=== PATIENT | female | born 1965 | race Caucasian/White ===

== ENCOUNTER 2019-02-16 07:36 | Inpatient (IN) | payer OTHER, MEDICAID ==
[~2019-02-16] VITALS: Ht 152.4 cm; Wt 68.0 kg
[2019-02-16] MEDS ORDERED: SODIUM CHLORIDE 0.9% 1000ML BAG (SEPSIS BOLUS) IV ONE (08:00)
[2019-02-16 08:47] LABS: BG BASE EXCESS 2.9 mmol/L (-2.0-2.0); BG CARBOXYHEMOGLOBIN 1.3 % (0.5-1.5); BG DEOXYHEMOGLOBIN 2.8 % (0.0-5.0); BG HCO3 ACT 26.9 mmol/L (22.0-26.0); BG OXYGEN SATURATION 97.2 % (92.0-98.5); BG OXYHEMOGLOBIN 95.9 % (94.0-97.0); BG PCO2 39.2 mmHg (35.0-45.0); BG PH 7.454 (7.350-7.450); BG PO2 92.6 mmHg (75.0-100.0); BG SAMPLE SITE RIGHT RADIAL; BG TOTAL HEMOGLOBIN 12.2 g/dL (12.0-18.0); BG VENT MODE ROOM AIR
[2019-02-16 09:01] LABS: BASOPHILS % 0.6 % (0.0-2.0); EOSINOPHILS % 0.2 % (0.0-5.0); HEMATOCRIT. 37.5 % (36.0-48.0); HEMOGLOBIN. 12.5 g/dL (12.0-16.0); LYMPHOCYTES % 14.9 % (20.0-50.0); MEAN CORPUSCULAR HEMOGLOBIN 26.2 pg (28.0-32.0); MEAN CORPUSCULAR VOLUME 78.6 fL (81.0-99.0); MEAN PLATELET VOLUME 7.8 fl (7.4-10.4); NEUTROPHILS % 79.3 % (40.0-76.0); PLATELET 444 x1000/uL (130-400); RED BLOOD CELL COUNT 4.76 mill/uL (4.2-5.4); RED CELL DISTRIBUTION WIDTH 14.4 % (11.6-14.6)
[2019-02-16 09:07] LABS: PROTHROMBIN TIME 10.2 sec (9.6-11.0)
[2019-02-16 09:12] LABS: CHLORIDE 102 mEq/L (98-107)
[2019-02-16 09:20] LABS: BETA HYDROXYBUTYRATE 0.5 mMol/L (0.0-0.3)
[2019-02-16 09:28] LABS: CLARITY URINE TURBID (CLEAR); KETONES URINE NEGATIVE (NEGATIVE); LEUKOCYTE ESTERASE URINE 3+ (NEGATIVE); NITRITE URINE NEGATIVE (NEGATIVE); OCCULT BLOOD URINE 3+ (NEGATIVE); PH URINE 5.5 (4.5-8.0); PROTEIN URINE 2+ (NEGATIVE); SPECIFIC GRAVITY URINE 1.018 (1.005-1.030); UROBILINOGEN URINE 0.2 E.U./dL (0.2-1.0)
[2019-02-16 10:38] LABS: COLOR URINE PALE YELLOW (YELLOW)
[2019-02-16] MEDS ORDERED: PIPERACILLIN/TAZ 3.375G PREMIX 50 ML IV NR (11:15)
[2019-02-16] MEDS ORDERED: PIPERACILLIN/TAZOBACTAM 3.375GM/50ML PREMIX IV ONE (11:15)
[2019-02-16] MEDS ORDERED: MAGNESIUM/ALUMINUM HYDROXIDE/SIMETHICONE 30ML UDC PO PRN (12:30)
[2019-02-16] MEDS ORDERED: IPRATROPIUM/ALBUTEROL 0.5-3(2.5)MG/3ML NEB INH PRN (12:30)
[2019-02-16] MEDS ORDERED: TRAMADOL 50MG TABLET PO PRN (12:30)
[2019-02-16] MEDS ORDERED: KETOROLAC 15MG/ML VIAL IV PRN (12:30)
[2019-02-16] MEDS ORDERED: CLONIDINE 0.1MG TABLET PO PRN (12:30)
[2019-02-16] MEDS ORDERED: ONDANSETRON HCL 4MG/2ML INJ IV PRN (12:30)
[2019-02-16] MEDS ORDERED: DOCUSATE SODIUM 100MG CAPSULE PO PRN (12:30)
[2019-02-16] MEDS ORDERED: DEXTROSE 50% WATER 50ML SYRINGE IV PRN (12:30)
[2019-02-16] MEDS ORDERED: NITROGLYCERIN 0.4MG TABLET SL SL PRN (12:30)
[2019-02-16] MEDS ORDERED: NA PHOS,M-B/NA PHOS,DI-BA ENEMA 118ML PR PRN (12:30)
[2019-02-16] MEDS ORDERED: GUAIFENESIN 200MG/10ML SUGAR FREE UDC PO PRN (12:30)
[2019-02-16] MEDS: BLOOD SUGAR DIAGNOSTIC STRIP TEST SCH ×3 (13:11→21:37)
[2019-02-16] MEDS ORDERED: LABETALOL 5MG/ML SYR 20 MG/4 ML SYRINGE IV ONE (13:15)
[2019-02-16 13:16] LABS: FOLIC ACID (FOLATE) SERUM > 20.00 ng/mL (>5.38); VITAMIN B12 SERUM 1029 pg/mL (211-911)
[2019-02-16 13:45] VITALS: BP 132/81
[2019-02-16] MEDS: DEXT 5%/0.45% NACL 1000ML 1,000 ML IV SCH ×2 (15:20→23:34)
[2019-02-16] MEDS: INSULIN LISPRO 100 UNITS/ML SUBCUT SCH ×3 (15:26→22:57)
[2019-02-16 16:00] VITALS: BP 155/87
[2019-02-16] MEDS ORDERED: CEFTRIAXONE 1 G PREMIX 50 ML IV SCH (16:00)
[2019-02-16] MEDS: ENOXAPARIN 40MG/0.4ML SYR SUBCUT SCH (16:22)
[2019-02-16] MEDS ORDERED: LEVOFLOXACIN 500MG PREMIX 100 ML IV SCH (17:00)
[2019-02-16 17:37] LABS: CREATINE KINASE 94 IU/L (26-192)
[2019-02-16 17:38] LABS: CREATINE KINASE MB FRACTION < 1.0 ng/mL (0.5-3.6)
[2019-02-16] MEDS ORDERED: DOCU-138 PO (17:40)
[2019-02-16] MEDS ORDERED: INSU100I28 SQ (17:45)
[2019-02-16] MEDS ORDERED: AMLO10TA4 PO (17:45)
[2019-02-16] MEDS ORDERED: MOM PO (17:45)
[2019-02-16] MEDS ORDERED: ACET-2178 PO (17:45)
[2019-02-16] MEDS ORDERED: BENA10TA10 PO (17:45)
[2019-02-16] MEDS ORDERED: BISA10SU8 RC (17:45)
[2019-02-16 20:00] VITALS: BP 121/67
[2019-02-16] MEDS ORDERED: CLONIDINE HCL 0.2MG/24HR PATCH TD ONE (20:30)
[2019-02-16] MEDS ORDERED: ZOLPIDEM TARTRATE 5MG TABLET PO PRN (21:00)
[2019-02-16] MEDS: FAMOTIDINE 20MG TABLET PO SCH (21:00)
[2019-02-16] MEDS: METOPROLOL TARTRATE 25MG TABLET PO SCH (21:00)
[2019-02-16] MEDS: LISINOPRIL 20MG TABLET PO SCH (21:00)
[2019-02-16] MEDS: ATORVASTATIN CALCIUM 10MG TABLET PO SCH (21:00)
[2019-02-16] MEDS ORDERED: INSULIN GLARGINE UD 100 UNITS/ML SYR SUBCUT SCH (22:00)
[2019-02-16] MEDS: HYDRALAZINE 20MG/ML VIAL IV PRN (23:28)
[2019-02-16] MEDS: INSULIN GLARGINE UD 100 UNITS/ML SYR SUBCUT SCH (23:29)
[2019-02-17] VITALS (8 sets, daily range): BP systolic 120–210; BP diastolic 75–110
[2019-02-17 00:16] LABS: CREATINE KINASE 112 IU/L (26-192)
[2019-02-17] MEDS: BLOOD SUGAR DIAGNOSTIC STRIP TEST SCH ×4 (07:25→21:14)
[2019-02-17] MEDS: INSULIN LISPRO 100 UNITS/ML SUBCUT SCH ×4 (08:10→21:18)
[2019-02-17] MEDS: METOPROLOL TARTRATE 25MG TABLET PO SCH ×2 (08:31→21:19)
[2019-02-17] MEDS: AMLODIPINE 10MG TABLET PO SCH (08:32)
[2019-02-17] MEDS: LISINOPRIL 20MG TABLET PO SCH ×2 (08:32→21:19)
[2019-02-17] MEDS: FAMOTIDINE 20MG TABLET PO SCH ×2 (08:32→21:19)
[2019-02-17] MEDS ORDERED: ASPIRIN 325MG EC TABLET PO SCH (09:00)
[2019-02-17] MEDS: DEXT 5%/0.45% NACL 1000ML 1,000 ML IV SCH ×2 (10:00→21:17)
[2019-02-17 11:29] LABS: BASOPHILS % 0.6 % (0.0-2.0); EOSINOPHILS % 0.2 % (0.0-5.0); HEMATOCRIT. 36.6 % (36.0-48.0); HEMOGLOBIN. 12.3 g/dL (12.0-16.0); MEAN CORPUSCULAR HEMOGLOBIN 26.5 pg (28.0-32.0); MEAN CORPUSCULAR VOLUME 79.1 fL (81.0-99.0); MEAN PLATELET VOLUME 7.4 fl (7.4-10.4); MONOCYTES % 8.1 % (2.0-8.0); NEUTROPHILS % 74.1 % (40.0-76.0); PLATELET 382 x1000/uL (130-400); RED BLOOD CELL COUNT 4.63 mill/uL (4.2-5.4); RED CELL DISTRIBUTION WIDTH 14.5 % (11.6-14.6)
[2019-02-17 11:40] LABS: CHLORIDE 107 mEq/L (98-107)
[2019-02-17] MEDS: HYDRALAZINE 20MG/ML VIAL IV PRN (12:38)
[2019-02-17] MEDS ORDERED: DIATR MEGLU/DIATRIZOATE SOLN 30ML PO SCH (13:45)
[2019-02-17] MEDS: ENOXAPARIN 40MG/0.4ML SYR SUBCUT SCH (17:39)
[2019-02-17] MEDS: NYSTATIN POWDER 15GM TOP SCH (17:40)
[2019-02-17] MEDS: CEFTRIAXONE 1 G PREMIX 50 ML IV SCH (18:19)
[2019-02-17] MEDS: LEVOFLOXACIN 500MG PREMIX 100 ML IV SCH (18:49)
[2019-02-17] MEDS: ATORVASTATIN CALCIUM 10MG TABLET PO SCH (21:18)
[2019-02-17] MEDS: INSULIN GLARGINE UD 100 UNITS/ML SYR SUBCUT SCH (21:20)
[2019-02-18] VITALS: BP 158/82
[2019-02-18 04:00] VITALS: BP 149/82
[2019-02-18] MEDS: BLOOD SUGAR DIAGNOSTIC STRIP TEST SCH ×4 (05:39→21:32)
[2019-02-18] MEDS: DEXT 5%/0.45% NACL 1000ML 1,000 ML IV SCH ×2 (05:40→19:04)
[2019-02-18 08:00] VITALS: BP 120/72
[2019-02-18] MEDS: LISINOPRIL 20MG TABLET PO SCH ×2 (08:22→21:30)
[2019-02-18] MEDS: AMLODIPINE 10MG TABLET PO SCH (08:22)
[2019-02-18] MEDS: NYSTATIN POWDER 15GM TOP SCH ×3 (08:22→17:09)
[2019-02-18] MEDS: METOPROLOL TARTRATE 25MG TABLET PO SCH ×2 (08:23→21:30)
[2019-02-18] MEDS: FAMOTIDINE 20MG TABLET PO SCH ×2 (08:23→21:30)
[2019-02-18] MEDS: INSULIN LISPRO 100 UNITS/ML SUBCUT SCH ×4 (08:24→21:00)
[2019-02-18] MEDS: ASPIRIN 325MG TABLET PO SCH (10:00)
[2019-02-18 12:00] VITALS: BP 118/79
[2019-02-18 16:00] VITALS: BP 168/89
[2019-02-18] MEDS: ENOXAPARIN 40MG/0.4ML SYR SUBCUT SCH (16:48)
[2019-02-18] MEDS: CEFTRIAXONE 1 G PREMIX 50 ML IV SCH (17:11)
[2019-02-18] MEDS ORDERED: BISACODYL 5MG TABLET PO SCH (17:30)
[2019-02-18] MEDS: LEVOFLOXACIN 500MG PREMIX 100 ML IV SCH (18:58)
[2019-02-18 20:00] VITALS: BP 132/61
[2019-02-18] MEDS ORDERED: BISACODYL 10MG SUPP PR SCH (21:00)
[2019-02-18] MEDS: ATORVASTATIN CALCIUM 10MG TABLET PO SCH (21:30)
[2019-02-18] MEDS: INSULIN GLARGINE UD 100 UNITS/ML SYR SUBCUT SCH (21:33)
[2019-02-19] VITALS: BP 134/60
[2019-02-19 04:00] VITALS: BP 124/62
[2019-02-19] MEDS: BLOOD SUGAR DIAGNOSTIC STRIP TEST SCH ×4 (07:40→21:13)
[2019-02-19 08:00] VITALS: BP 132/76
[2019-02-19] MEDS: LISINOPRIL 20MG TABLET PO SCH ×2 (08:57→20:22)
[2019-02-19] MEDS: AMLODIPINE 10MG TABLET PO SCH (08:58)
[2019-02-19] MEDS: FAMOTIDINE 20MG TABLET PO SCH ×2 (08:58→20:23)
[2019-02-19] MEDS: ASPIRIN 325MG TABLET PO SCH (08:58)
[2019-02-19] MEDS: INSULIN LISPRO 100 UNITS/ML SUBCUT SCH ×4 (09:00→21:00)
[2019-02-19] MEDS: NYSTATIN POWDER 15GM TOP SCH ×3 (09:01→18:25)
[2019-02-19] MEDS: METOPROLOL TARTRATE 25MG TABLET PO SCH ×2 (09:07→20:23)
[2019-02-19 12:00] VITALS: BP 149/81
[2019-02-19] MEDS ORDERED: BISACODYL 10MG SUPP PR PRN (15:30)
[2019-02-19 16:00] VITALS: BP 129/72
[2019-02-19] MEDS: ENOXAPARIN 40MG/0.4ML SYR SUBCUT SCH (16:53)
[2019-02-19] MEDS: CEFTRIAXONE 1 G PREMIX 50 ML IV SCH (18:25)
[2019-02-19] MEDS: LEVOFLOXACIN 500MG PREMIX 100 ML IV SCH (18:52)
[2019-02-19 20:00] VITALS: BP 192/90
[2019-02-19] MEDS: ATORVASTATIN CALCIUM 10MG TABLET PO SCH (20:23)
[2019-02-19] MEDS: ACETAMINOPHEN 325MG TABLET PO PRN (20:23)
[2019-02-19] MEDS: INSULIN GLARGINE UD 100 UNITS/ML SYR SUBCUT SCH (21:40)
[2019-02-19] MEDS: DEXT 5%/0.45% NACL 1000ML 1,000 ML IV SCH (22:35)
[2019-02-20] VITALS (7 sets, daily range): BP systolic 150–200; BP diastolic 74–93
[2019-02-20 06:54] LABS: HEMATOCRIT 37.6 % (36.0-48.0); HEMOGLOBIN 12.5 g/dL (12.0-16.0); MEAN CORPUSCULAR HEMOGLOBIN 25.9 pg (28.0-32.0); PLATELET 447 x1000/uL (130-400); RED BLOOD CELL COUNT 4.83 mill/uL (4.2-5.4); RED CELL DISTRIBUTION WIDTH 14.1 % (11.6-14.6)
[2019-02-20] MEDS: BLOOD SUGAR DIAGNOSTIC STRIP TEST SCH ×4 (07:03→21:00)
[2019-02-20] MEDS: INSULIN LISPRO 100 UNITS/ML SUBCUT SCH ×4 (08:10→22:41)
[2019-02-20] MEDS: FAMOTIDINE 20MG TABLET PO SCH ×2 (09:38→22:33)
[2019-02-20] MEDS: ASPIRIN 325MG TABLET PO SCH (09:38)
[2019-02-20] MEDS: AMLODIPINE 10MG TABLET PO SCH (09:39)
[2019-02-20] MEDS: LISINOPRIL 20MG TABLET PO SCH ×2 (09:39→22:33)
[2019-02-20] MEDS: DEXT 5%/0.45% NACL 1000ML 1,000 ML IV SCH ×2 (09:40→18:00)
[2019-02-20] MEDS: METOPROLOL TARTRATE 25MG TABLET PO SCH ×2 (09:40→22:33)
[2019-02-20] MEDS: ACETAMINOPHEN 325MG TABLET PO PRN ×2 (09:41→18:54)
[2019-02-20] MEDS: NYSTATIN POWDER 15GM TOP SCH ×3 (10:06→18:54)
[2019-02-20] MEDS: ENOXAPARIN 40MG/0.4ML SYR SUBCUT SCH (18:54)
[2019-02-20] MEDS: CEFTRIAXONE 1 G PREMIX 50 ML IV SCH (18:54)
[2019-02-20] MEDS: ATORVASTATIN CALCIUM 10MG TABLET PO SCH (22:33)
[2019-02-20] MEDS: LEVOFLOXACIN 500MG PREMIX 100 ML IV SCH (22:33)
[2019-02-20] MEDS: INSULIN GLARGINE UD 100 UNITS/ML SYR SUBCUT SCH (22:41)
[2019-02-21] VITALS (10 sets, daily range): BP systolic 130–193; BP diastolic 60–96
[2019-02-21] MEDS: DEXT 5%/0.45% NACL 1000ML 1,000 ML IV SCH ×2 (05:29→15:12)
[2019-02-21] MEDS: BLOOD SUGAR DIAGNOSTIC STRIP TEST SCH ×4 (06:07→20:37)
[2019-02-21] MEDS: HYDRALAZINE 20MG/ML VIAL IV PRN (06:44)
[2019-02-21] MEDS: INSULIN LISPRO 100 UNITS/ML SUBCUT SCH ×4 (08:10→21:37)
[2019-02-21] MEDS: AMLODIPINE 10MG TABLET PO SCH (10:40)
[2019-02-21] MEDS: ASPIRIN 325MG TABLET PO SCH (10:40)
[2019-02-21] MEDS: FAMOTIDINE 20MG TABLET PO SCH ×2 (10:40→20:37)
[2019-02-21] MEDS: METOPROLOL TARTRATE 25MG TABLET PO SCH ×2 (10:41→20:37)
[2019-02-21] MEDS: LISINOPRIL 20MG TABLET PO SCH ×2 (10:42→20:37)
[2019-02-21] MEDS: NYSTATIN POWDER 15GM TOP SCH ×3 (16:39→16:42)
[2019-02-21] MEDS: ENOXAPARIN 40MG/0.4ML SYR SUBCUT SCH (16:41)
[2019-02-21] MEDS: CEFTRIAXONE 1 G PREMIX 50 ML IV SCH (16:48)
[2019-02-21] MEDS: LEVOFLOXACIN 500MG PREMIX 100 ML IV SCH (19:41)
[2019-02-21] MEDS: ATORVASTATIN CALCIUM 10MG TABLET PO SCH (20:36)
[2019-02-21] MEDS: INSULIN GLARGINE UD 100 UNITS/ML SYR SUBCUT SCH (21:37)
[2019-02-22] VITALS: BP 146/78
[2019-02-22 04:00] VITALS: BP 161/77
[2019-02-22] MEDS: DEXT 5%/0.45% NACL 1000ML 1,000 ML IV SCH ×3 (05:32→17:34)
[2019-02-22] MEDS: BLOOD SUGAR DIAGNOSTIC STRIP TEST SCH ×4 (06:20→21:00)
[2019-02-22 08:00] VITALS: BP 159/87
[2019-02-22] MEDS: ASPIRIN 325MG TABLET PO SCH (09:11)
[2019-02-22] MEDS: METOPROLOL TARTRATE 25MG TABLET PO SCH ×2 (09:12→23:37)
[2019-02-22] MEDS: FAMOTIDINE 20MG TABLET PO SCH ×2 (09:12→23:36)
[2019-02-22] MEDS: LISINOPRIL 20MG TABLET PO SCH ×2 (09:12→23:37)
[2019-02-22] MEDS: AMLODIPINE 10MG TABLET PO SCH (09:12)
[2019-02-22] MEDS: NYSTATIN POWDER 15GM TOP SCH ×3 (09:13→17:34)
[2019-02-22] MEDS: INSULIN LISPRO 100 UNITS/ML SUBCUT SCH ×4 (09:14→23:38)
[2019-02-22 11:42] VITALS: BP 152/80
[2019-02-22 16:00] VITALS: BP 140/72
[2019-02-22] MEDS: CEFTRIAXONE 1 G PREMIX 50 ML IV SCH (17:34)
[2019-02-22] MEDS: LEVOFLOXACIN 500MG PREMIX 100 ML IV SCH (18:08)
[2019-02-22] MEDS: ATORVASTATIN CALCIUM 10MG TABLET PO SCH (23:36)
[2019-02-22] MEDS: INSULIN GLARGINE UD 100 UNITS/ML SYR SUBCUT SCH (23:38)
[2019-02-23] VITALS (7 sets, daily range): BP systolic 131–152; BP diastolic 67–91
[2019-02-23] MEDS: DEXT 5%/0.45% NACL 1000ML 1,000 ML IV SCH ×2 (05:20→18:21)
[2019-02-23 06:11] LABS: HEMATOCRIT 41.6 % (36.0-48.0); HEMOGLOBIN 13.7 g/dL (12.0-16.0); MEAN CORPUSCULAR HEMOGLOBIN 25.7 pg (28.0-32.0); MEAN CORPUSCULAR VOLUME 78.1 fL (81.0-99.0); PLATELET 310 x1000/uL (130-400); RED BLOOD CELL COUNT 5.33 mill/uL (4.2-5.4); RED CELL DISTRIBUTION WIDTH 13.8 % (11.6-14.6)
[2019-02-23] MEDS: BLOOD SUGAR DIAGNOSTIC STRIP TEST SCH ×4 (06:47→21:00)
[2019-02-23 07:10] LABS: PARTIAL THROMBOPLASTIN TIME 33.1 sec (23.4-31.0); PROTHROMBIN TIME 10.2 sec (9.6-11.0)
[2019-02-23] MEDS: INSULIN LISPRO 100 UNITS/ML SUBCUT SCH ×5 (07:53→21:00)
[2019-02-23] MEDS: METOPROLOL TARTRATE 25MG TABLET PO SCH ×2 (09:00→21:22)
[2019-02-23] MEDS: AMLODIPINE 10MG TABLET PO SCH (09:00)
[2019-02-23] MEDS: LISINOPRIL 20MG TABLET PO SCH ×2 (09:00→21:22)
[2019-02-23] MEDS: FAMOTIDINE 20MG TABLET PO SCH ×2 (09:00→21:22)
[2019-02-23] MEDS: NYSTATIN POWDER 15GM TOP SCH ×3 (09:57→18:22)
[2019-02-23] MEDS ORDERED: BACTERIOSTATIC SODIUM CHLORIDE 0.9% 30ML VIAL IJ ONE (13:11)
[2019-02-23] MEDS ORDERED: SIMETHICONE 40 MG/0.6 ML 30ML ONE (13:11)
[2019-02-23] MEDS ORDERED: FENTANYL CITRATE/PF 50MCG/ML 2ML VIAL ONE (16:25)
[2019-02-23] MEDS ORDERED: MIDAZOLAM HCL 5 MG/5 ML VIAL ONE (16:25)
[2019-02-23] MEDS ORDERED: MIDAZOLAM HCL 5 MG/5 ML VIAL IV PRN (16:35)
[2019-02-23] MEDS: CEFTRIAXONE 1 G PREMIX 50 ML IV SCH (18:27)
[2019-02-23] MEDS: LEVOFLOXACIN 500MG PREMIX 100 ML IV SCH (19:51)
[2019-02-23] MEDS: ATORVASTATIN CALCIUM 10MG TABLET PO SCH (21:22)
[2019-02-23] MEDS: INSULIN GLARGINE UD 100 UNITS/ML SYR SUBCUT SCH (21:29)
[2019-02-24 00:05] VITALS: BP 135/82
[2019-02-24] MEDS: DEXT 5%/0.45% NACL 1000ML 1,000 ML IV SCH (02:20)
[2019-02-24 04:00] VITALS: BP 134/72
[2019-02-24 08:00] VITALS: BP 131/77
[2019-02-24] MEDS ORDERED: EPINEPHRINE 0.1MG/ML (1:10,000) 10ML SYR ONE (08:25)
[2019-02-24] MEDS ORDERED: CALCIUM CHLORIDE 1GM/10ML SYR IV ONE (08:25)
== END 2019-02-24 11:45 | disposition expired | DRG 720 ==
LOC: ER 07:36 → 7WST 11:19 → EDBEDREQ 11:25 → EDBEDREQSVC 11:25
PROVIDERS: ADMIT Internal Medicine; ATTEND Internal Medicine
PROC: 0DH63UZ Insertion of Feeding Device into Stomach, Percutaneous Approach (ICD-10-PCS; 2019-02-23)
PROC: 5A12012 Performance of Cardiac Output, Single, Manual (ICD-10-PCS; principal; 2019-02-24)
PROC: 0BH17EZ Insertion of Endotracheal Airway into Trachea, Via Natural or Artificial Opening (ICD-10-PCS; 2019-02-24)
DX: A41.9 Sepsis, unspecified organism (principal); I63.9 Cerebral infarction, unspecified; G92 Toxic encephalopathy; E46 Unspecified protein-calorie malnutrition; R13.12 Dysphagia, oropharyngeal phase; D69.6 Thrombocytopenia, unspecified; E11.65 Type 2 diabetes mellitus with hyperglycemia; K56.49 Other impaction of intestine; E78.00 Pure hypercholesterolemia, unspecified; K59.00 Constipation, unspecified; N39.0 Urinary tract infection, site not specified; I10 Essential (primary) hypertension; R00.1 Bradycardia, unspecified; M71.21 Synovial cyst of popliteal space [Baker], right knee; I46.9 Cardiac arrest, cause unspecified; R47.02 Dysphasia; K29.70 Gastritis, unspecified, without bleeding; Z74.01 Bed confinement status; Z86.73 Personal history of transient ischemic attack (TIA), and cerebral infarction without residual deficits; Z68.29 Body mass index [BMI] 29.0-29.9, adult
CPT/HCPCS: 36415; 36600; 71045; 74176; 80061; 82010; 82375; 82550; 82553; 82607; 82746; 82805; 82962; 83036; 83605; 84134; 84145; 84484; 85027; 92610; 93005; 93970; 96365; 96375; 97161; 99291; A6261; J0360; J0696; J1650; J1815; J1956; J2250; J2543; J3010; J3490; J7030; Q9963